=== PATIENT | male | born 1995 | race Caucasian/White ===

== ENCOUNTER 2018-01-23 03:45 | Emergency (ER) | payer BC ==
[~2018-01-23 03:45] MED LIST: ONDA4TAB PO
[2018-01-23 03:48] VITALS: BP 112/90
--- NOTE | 2018-01-23 03:48 | ER Report ---
History and Physical Time Seen By MD: 03:48 HPI/ROS CHIEF COMPLAINT: Shelter clearance HISTORY OF PRESENT ILLNESS: 22-year-old [facility]. Patient is suspected DUI. Patient denies any injuries or complaints. Patient denies significant past medical history. REVIEW OF SYSTEMS: Respiratory: No cough, no dyspnea. Cardiovascular: No chest pain, no palpitations. Gastrointestinal: No vomiting, no abdominal pain. Musculoskeletal: No back pain. Allergies: Coded Allergies: metronidazole (Verified Allergy, Unknown, 01/23/18) HIVES vancomycin (Verified Allergy, Unknown, 01/23/18) HIVES Uncoded Allergies: CEFALOPHORS (Allergy, Unknown, 08/08/16) HIVES Home Meds No Active Prescriptions or Reported Meds Reviewed Nurses Notes: Yes Old Medical Records Reviewed: Yes Hx Smoking: Yes Smoking Status: Current: Some Days Smoker Constitutional Vital Sign - Last 24 Hours 01/23/18 03:48 Temp 98.1 Pulse 82 Resp 16 B/P (MAP) 112/90 Pulse Ox 91 Physical Exam General Appearance: The patient is alert, has no immediate need for airway pr otection and no current signs of toxicity. Vital signs stable, afebrile, pulse ox normal. The patient of the head and neck reveal no tenderness or trauma HEENT: Pupils equal and round no injection. Oropharynx without redness or exudate, mucous. Membranes are moist Respiratory: Chest is non tender, lungs are clear to auscultation. Cardiac: regular rate and rhythm Gastrointestinal: Abdomen is soft and non tender, no masses, bowel sounds normal. Musculoskeletal: Neck: Neck is supple and non tender. Extremities have full range of motion and are non tender. Skin: No rashes or lesions. DIFFERENTIAL DIAGNOSIS: After history and physical exam differential diagnosis was considered for senior living clearance, polysubstance abuse, alcohol intoxication Medical Decision Making ED Course/Re-evaluation ED Course Patient was admitted to an examination room. H&P was done. The differential diagnoses was considered. On clinical examination Decision to Disposition Date: Jan 23, 2018 Decision to Disposition Time: 03:54 Depart Departure Latest Vital Signs Vital Signs Date Time Temp Pulse Resp B/P (MAP) Pulse Ox O2 Delivery O2 Flow Rate FiO2 01/23/18 03:48 98.1 82 16 112/90 91 Impression: Primary Impression: Medical clearance for incarceration Condition: Improved Disposition: [facility] TO SKILLED NURSING/CORRECTIONAL F New Scripts No Active Prescriptions or Reported Meds Patient Instructions: GENERAL ER DISCHARGE INSTRUCTIONS Additional Instructions: Medical cleared for senior living admission BRANDY ROWAN DO Jan 23, 2018 03:49
== END 2018-01-23 03:58 ==
LOC: ER 03:46
DX: F10.920 Alcohol use, unspecified with intoxication, uncomplicated (principal)
CPT/HCPCS: 99281